=== PATIENT | female | born 1945 | race Caucasian/White ===

== ENCOUNTER 2020-12-13 04:48 | Day surgery (SDC) | payer OTHER, BC ==
[2020-12-12 16:23] VITALS: BMI 27.1
[2020-12-13 10:10] VITALS: TEMP 97.7
[2020-12-13 11:54] VITALS: BP 126/55; PULSE 54
== END 2020-12-13 11:30 | disposition home or self-care (01) ==
LOC: JASU-ENDO 04:48
PROVIDERS: ATTEND Internal Medicine Gastroenterology
PROC: 0DBP8ZX Excision of Rectum, Via Natural or Artificial Opening Endoscopic, Diagnostic (ICD-10-PCS; 2020-12-13)
PROC: 0DBH8ZX Excision of Cecum, Via Natural or Artificial Opening Endoscopic, Diagnostic (ICD-10-PCS; principal; 2020-12-13 10:00)
DX: Z12.11 Encounter for screening for malignant neoplasm of colon (principal); Z86.010 Personal history of colon polyps; D12.0 Benign neoplasm of cecum; D12.5 Benign neoplasm of sigmoid colon; K62.1 Rectal polyp; K64.8 Other hemorrhoids; K57.30 Diverticulosis of large intestine without perforation or abscess without bleeding; K63.89 Other specified diseases of intestine
CPT/HCPCS: 88305-TC